=== PATIENT | male | born 1940 | race Caucasian/White ===

== ENCOUNTER 2018-03-20 16:35 | Emergency (ER) | payer MEDICARE ==
--- NOTE | 2018-03-20 16:59 | Emergency Department Report ---
ED Altered Mental Status HPI - General Chief Complaint: Altered Mental Status Stated Complaint: POSS CVA Time Seen by Provider: 03/20/18 16:55 Source: family, EMS Mode of arrival: Stretcher Limitations: Altered Mental Status - History of Present Illness Initial Comments: Per EMS report, patient passed out and fell at 15:50pm and became altered afterwards. Patient is unable to give a medical history or answer questions. He fell at home 2 days ago and sustained a laceration on the occipital part of his scalp. Patient has a history of hypertension and high Cholesterol. Attempt to get further history from the patient was unsuccessful. Patient had a Gastrointestinal bleed 2 weeks ago and he was treated at a [facility]. Complaint: altered mental status -: Sudden, hour(s) (1) Severity: Unable to Determine Consistency of Symptoms: unknown Context: unknown - Related Data Home Medications Medication Instructions Recorded Confirmed Last Taken Unobtainable 03/20/18 03/20/18 Unknown Allergies Allergy/AdvReac Type Severity Reaction Status Date / Time No Known Allergies Allergy Unverified 03/20/18 17:17 ED Review of Systems ROS: Stated complaint: POSS CVA Other details as noted in HPI Comment: Unobtainable due to pts medical conditions (Altered mental status.) ED Past Medical Hx - Medications Home Medications: Home Medications Medication Instructions Recorded Confirmed Last Taken Type Unobtainable 03/20/18 03/20/18 Unknown History ED Physical Exam - General Limitations: Altered Mental Status General appearance: alert, in no apparent distress - Head Head exam: Present: other (Occipital laceration which is old about 2-3 days and bleeding is controlled ) - Eye Eye exam: Present: normal appearance, PERRL - ENT ENT exam: Present: normal exam, mucous membranes moist - Neck Neck exam: Present: normal inspection - Respiratory Respiratory exam: Present: normal lung sounds bilaterally - Cardiovascular Cardiovascular Exam: Present: normal rhythm, bradycardia, normal heart sounds - GI/Abdominal GI/Abdominal exam: Present: soft, normal bowel sounds. Absent: distended, tenderness, guarding, rebound, rigid - Extremities Exam Extremities exam: Present: normal inspection, full ROM, normal capillary refill - Back Exam Back exam: Present: normal inspection - Neurological Exam Neurological exam: Present: alert, altered (Aphesia), other (GCS = 10. RUE weakness, Aphasia.) - Psychiatric Psychiatric exam: Present: flat affect - Skin Skin exam: Present: warm, dry, intact, normal color. Absent: rash - Assessment Assessment Interval: Baseline (Unable to evaluation because patient is not answering question and does not follow commands.) ED Course Vital Signs 03/20/18 03/20/18 03/20/18 17:00 17:01 17:10 Temperature 97.7 F Pulse Rate 52 L 53 L Respiratory 16 18 16 Rate Blood Pressure 161/68 161/68 O2 Sat by Pulse 100 100 100 Oximetry 03/20/18 03/20/18 03/20/18 17:15 17:30 17:45 Temperature Pulse Rate 52 L 55 L 61 Respiratory 16 22 25 H Rate Blood Pressure 161/68 184/74 161/68 O2 Sat by Pulse 100 100 100 Oximetry 03/20/18 03/20/18 03/20/18 18:00 18:17 18:30 Temperature Pulse Rate 53 L 60 58 L Respiratory 17 19 19 Rate Blood Pressure 165/65 165/65 177/71 O2 Sat by Pulse 100 100 100 Oximetry 03/20/18 03/20/18 03/20/18 18:45 19:00 19:15 Temperature Pulse Rate 67 58 L 57 L Respiratory 21 21 20 Rate Blood Pressure 165/65 173/75 173/75 O2 Sat by Pulse 100 100 100 Oximetry - Consultations Consultation #1: 03/20/18 17:15. I consulted the tele Neurologist oracle bpm consultant Dr Tracy Caballero. She recommend NO TPA. Patient has a history of recent head injury and G.I. bleed. She said the risk of TPA is more than the benefit at this time. She wants patient transfereed to [facility] for further evaluation and management. 03/20/18 18:07 Consultation #2: 03/20/18 18:54 I consulted the [facility] doctor oracle bpm consultant Dr Car. She agreed with transferring patient to [facility] for further evaluation and management. Consultation #3: 03/20/18 19:18 I consulted the Neuro Marine Engineer at [facility] Dr Rosario. He recommend transferring patient to [facility] for higher level of care and further management. - Lab Data Result diagrams: 03/20/18 16:45 03/20/18 16:45 Lab Results 03/20/18 03/20/18 03/20/18 Range/Units 16:45 16:45 16:45 WBC 5.5 (4.5-11.0) K/mm3 RBC 4.62 (3.65-5.03) M/mm3 Hgb 12.4 (11.8-15.2) gm/dl Hct 38.2 (35.5-45.6) % MCV 83 L (84-94) fl MCH 27 L (28-32) pg MCHC 33 (32-34) % RDW 20.9 H (13.2-15.2) % Plt Count 227 (140-440) K/mm3 Lymph % (Auto) 23.7 (13.4-35.0) % [place] % (Auto) 15.3 H (0.0-7.3) % Eos % (Auto) 4.7 H (0.0-4.3) % Baso % (Auto) 0.6 (0.0-1.8) % Lymph # 1.3 (1.2-5.4) K/mm3 [place] # 0.8 (0.0-0.8) K/mm3 Eos # 0.3 (0.0-0.4) K/mm3 Baso # 0.0 (0.0-0.1) K/mm3 Seg Neutrophils % 55.7 (40.0-70.0) % Seg Neutrophils # 3.0 (1.8-7.7) K/mm3 PT 14.0 (12.2-14.9) Sec. INR 1.03 (0.87-1.13) APTT 30.5 (24.2-36.6) Sec. Thrombin Time (15.1-19.6) Sec. Sodium 137 (137-145) mmol/L Potassium 4.2 (3.6-5.0) mmol/L Chloride 102.6 (98-107) mmol/L Carbon Dioxide 24 (22-30) mmol/L Anion Gap 15 mmol/L BUN 28 H (9-20) mg/dL Creatinine 1.2 (0.8-1.5) mg/dL Estimated GFR 59 ml/min BUN/Creatinine Ratio 23 % Glucose 106 H (75-100) mg/dL Calcium 8.8 (8.4-10.2) mg/dL Total Bilirubin (0.1-1.2) mg/dL Direct Bilirubin (0-0.2) mg/dL Indirect Bilirubin mg/dL AST (5-40) units/L ALT (7-56) units/L Alkaline Phosphatase (35-129) units/L Troponin T < 0.010 (0.00-0.029) ng/mL NT-Pro-B Natriuret Pep (0-900) pg/mL Total Protein (6.3-8.2) g/dL Albumin (3.9-5) g/dL Albumin/Globulin Ratio % Urine Color (Yellow) Urine Turbidity (Clear) Urine pH (5.0-7.0) Ur Specific [place] (1.003-1.030) Urine Protein (Negative) mg/dL Urine Glucose (UA) (Negative) mg/dL Urine Ketones (Negative) mg/dL Urine Blood (Negative) Urine Nitrite (Negative) Urine Bilirubin (Negative) Urine Urobilinogen (<2.0) mg/dL Ur Leukocyte Esterase (Negative) Urine WBC (Auto) (0.0-6.0) /HPF Urine RBC (Auto) (0.0-6.0) /HPF Urine Mucus /HPF 03/20/18 03/20/18 03/20/18 Range/Units 16:45 16:45 17:25 WBC (4.5-11.0) K/mm3 RBC (3.65-5.03) M/mm3 Hgb (11.8-15.2) gm/dl Hct (35.5-45.6) % MCV (84-94) fl MCH (28-32) pg MCHC (32-34) % RDW (13.2-15.2) % Plt Count (140-440) K/mm3 Lymph % (Auto) (13.4-35.0) % [place] % (Auto) (0.0-7.3) % Eos % (Auto) (0.0-4.3) % Baso % (Auto) (0.0-1.8) % Lymph # (1.2-5.4) K/mm3 [place] # (0.0-0.8) K/mm3 Eos # (0.0-0.4) K/mm3 Baso # (0.0-0.1) K/mm3 Seg Neutrophils % (40.0-70.0) % Seg Neutrophils # (1.8-7.7) K/mm3 PT (12.2-14.9) Sec. INR (0.87-1.13) APTT (24.2-36.6) Sec. Thrombin Time 17.1 (15.1-19.6) Sec. Sodium (137-145) mmol/L Potassium (3.6-5.0) mmol/L Chloride (98-107) mmol/L Carbon Dioxide (22-30) mmol/L Anion Gap mmol/L BUN (9-20) mg/dL Creatinine (0.8-1.5) mg/dL Estimated GFR ml/min BUN/Creatinine Ratio % Glucose (75-100) mg/dL Calcium (8.4-10.2) mg/dL Total Bilirubin 0.40 (0.1-1.2) mg/dL Direct Bilirubin < 0.2 (0-0.2) mg/dL Indirect Bilirubin 0.2 mg/dL AST 49 H (5-40) units/L ALT 27 (7-56) units/L Alkaline Phosphatase 102 (35-129) units/L Troponin T (0.00-0.029) ng/mL NT-Pro-B Natriuret Pep (0-900) pg/mL Total Protein 7.7 (6.3-8.2) g/dL Albumin 3.1 L (3.9-5) g/dL Albumin/Globulin Ratio 0.7 % Urine Color Yellow (Yellow) Urine Turbidity Clear (Clear) Urine pH 7.0 (5.0-7.0) Ur Specific [place] 1.011 (1.003-1.030) Urine Protein 100 mg/dl (Negative) mg/dL Urine Glucose (UA) Neg (Negative) mg/dL Urine Ketones Neg (Negative) mg/dL Urine Blood Neg (Negative) Urine Nitrite Neg (Negative) Urine Bilirubin Neg (Negative) Urine Urobilinogen < 2.0 (<2.0) mg/dL Ur Leukocyte Esterase Neg (Negative) Urine WBC (Auto) < 1.0 (0.0-6.0) /HPF Urine RBC (Auto) 2.0 (0.0-6.0) /HPF Urine Mucus Few /HPF 03/20/18 Range/Units 17:38 WBC (4.5-11.0) K/mm3 RBC (3.65-5.03) M/mm3 Hgb (11.8-15.2) gm/dl Hct (35.5-45.6) % MCV (84-94) fl MCH (28-32) pg MCHC (32-34) % RDW (13.2-15.2) % Plt Count (140-440) K/mm3 Lymph % (Auto) (13.4-35.0) % [place] % (Auto) (0.0-7.3) % Eos % (Auto) (0.0-4.3) % Baso % (Auto) (0.0-1.8) % Lymph # (1.2-5.4) K/mm3 [place] # (0.0-0.8) K/mm3 Eos # (0.0-0.4) K/mm3 Baso # (0.0-0.1) K/mm3 Seg Neutrophils % (40.0-70.0) % Seg Neutrophils # (1.8-7.7) K/mm3 PT (12.2-14.9) Sec. INR (0.87-1.13) APTT (24.2-36.6) Sec. Thrombin Time (15.1-19.6) Sec. Sodium (137-145) mmol/L Potassium (3.6-5.0) mmol/L Chloride (98-107) mmol/L Carbon Dioxide (22-30) mmol/L Anion Gap mmol/L BUN (9-20) mg/dL Creatinine (0.8-1.5) mg/dL Estimated GFR ml/min BUN/Creatinine Ratio % Glucose (75-100) mg/dL Calcium (8.4-10.2) mg/dL Total Bilirubin (0.1-1.2) mg/dL Direct Bilirubin (0-0.2) mg/dL Indirect Bilirubin mg/dL AST (5-40) units/L ALT (7-56) units/L Alkaline Phosphatase (35-129) units/L Troponin T < 0.010 (0.00-0.029) ng/mL NT-Pro-B Natriuret Pep 641.0 (0-900) pg/mL Total Protein (6.3-8.2) g/dL Albumin (3.9-5) g/dL Albumin/Globulin Ratio % Urine Color (Yellow) Urine Turbidity (Clear) Urine pH (5.0-7.0) Ur Specific [place] (1.003-1.030) Urine Protein (Negative) mg/dL Urine Glucose (UA) (Negative) mg/dL Urine Ketones (Negative) mg/dL Urine Blood (Negative) Urine Nitrite (Negative) Urine Bilirubin (Negative) Urine Urobilinogen (<2.0) mg/dL Ur Leukocyte Esterase (Negative) Urine WBC (Auto) (0.0-6.0) /HPF Urine RBC (Auto) (0.0-6.0) /HPF Urine Mucus /HPF - EKG Data -: EKG Interpreted by Nm EKG shows normal: sinus rhythm Rate: bradycardia (53) When compared to previous EKG there are: previous EKG unavailable Interpretation: nonspecific ST-T wave ricki, LVH 03/20/18 17:32 LAE, RBBB, No STEMI. - Radiology Data Radiology results: report reviewed, image reviewed - Medical Decision Making Cerebrovascular accident. Altered mental status. Hypertension. Patient will be transferred to [facility] for higher level of care. - Core Measures AMI Core Measures Followed: Yes Measure Exclusions: contraindicated (Recent head injury and G.I. bleed.) - NEXUS Criteria Focal neurological deficit present: Yes Altered level of consciousness: Yes NEXUS results: C-Spine cannot be cleared clinically by these results. Imaging is required. Critical Care Time: Yes Critical care time in (mins) excluding proc time.: 65 Critical care attestation.: If time is entered above; I have spent that time in minutes in the direct care of this critically ill patient, excluding procedure time. Critical Care Time: Multiple consultation and evaluation of labs/imaging studies. 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 CVA (cerebral vascular accident) Qualifiers: CVA mechanism: unspecified Qualified Code(s): I63.9 - Cerebral infarction, unspecified Altered mental status, unspecified Qualifiers: Altered mental status type: unspecified Qualified Code(s): R41.82 - Altered mental status, unspecified Head injury Qualifiers: Encounter type: initial encounter Qualified Code(s): S09.90XA - Unspecified injury of head, initial encounter Fall Qualifiers: Encounter type: initial encounter Qualified Code(s): W19.XXXA - Unspecified fall, initial encounter Hypertension Qualifiers: Hypertension type: unspecified Qualified Code(s): I10 - Essential (primary) hypertension Disposition: DC/TX-02 SHRT-TRM GEN HOSP IP Is pt being admited?: No Does the pt Need Aspirin: No Condition: Stable Instructions: Hypertension (ED) Referrals: PRIMARY CARE, [Primary Care Provider] - 3-5 Days Time of Disposition: 19:00
--- NOTE | 2018-03-20 17:02 | Cat Scan Report ---
FINAL REPORT EXAM: CT HEAD/BRAIN WO CON HISTORY: neuro deficits < 6hrs or sx present upon awakening patient had a recent fall. TECHNIQUE: 2.5 millimeter axial images from the skullbase to the vertex. Comparison: None FINDINGS: There is low-attenuation in the cortex of the right occipital lobe and posterior medial aspect of the right temporal lobe consistent with acute infarct in the right posterior cerebral artery distribution. There is a small focus of linear increased density in the anterior aspect of the infarct that most likely represents thrombus in the proximal ENGINEERING PSYCHOLOGIST or branch of the ENGINEERING PSYCHOLOGIST. There is a small focus of infarct in the patricia on the right of indeterminate age. There is a probable prominent perivascular space in the right putamen. There is no evidence of intracranial hemorrhage. Ventricular size is concordant with the degree of atrophy. There is moderate to marked atherosclerotic vascular calcification of the internal carotid arteries and vertebral arteries bilaterally at the skullbase. The visualized portions of the orbits, paranasal and mastoid sinuses are unremarkable. There is no evidence of fracture. IMPRESSION: 1. Evidence of acute infarct in the right posterior temporal and right occipital lobes in the right posterior cerebral artery distribution. Probable focus of thrombus in the proximal ENGINEERING PSYCHOLOGIST or branch of the ENGINEERING PSYCHOLOGIST on the right. 2. Infarct in the patricia on the right of indeterminate age. 3. No evidence of fracture. The finding of acute infarct right ENGINEERING PSYCHOLOGIST territory was discussed with Dr. Dee at 4:55 p.m. March 20, 2018.
[2018-03-20] MEDS ORDERED: ACTIVASE ONE (17:05)
[2018-03-20 17:07] LABS: Basophils % (Auto) 0.6 % (0.0-1.8); Eosinophils # (Auto) 0.3 K/mm3 (0.0-0.4); Eosinophils % (Auto) 4.7 % (0.0-4.3); Hematocrit 38.2 % (35.5-45.6); Hemoglobin 12.4 gm/dl (11.8-15.2); Lymphocytes # (Auto) 1.3 K/mm3 (1.2-5.4); Lymphocytes % (Auto) 23.7 % (13.4-35.0); Mean Corpuscular HGB Conc 33 % (32-34); Mean Corpuscular Hemoglobin 27 pg (28-32); Mean Corpuscular Volume 83 fl (84-94); Monocytes # (Auto) 0.8 K/mm3 (0.0-0.8); Monocytes % (Auto) 15.3 % (0.0-7.3); Platelet Count 227 K/mm3 (140-440); Red Blood Count 4.62 M/mm3 (3.65-5.03); Red Cell Distribution Width 20.9 % (13.2-15.2)
[2018-03-20 17:16] LABS: INR 1.03 (0.87-1.13)
[2018-03-20 17:17] LABS: Partial Thromboplastin Time 30.5 Sec. (24.2-36.6)
--- NOTE | 2018-03-20 17:26 | Cat Scan Report ---
FINAL REPORT EXAM: CT CERVICAL SPINE WO CON HISTORY: fall stroke TECHNIQUE: Axial helical imaging through the cervical spine with sagittal and coronal reformatted images obtained. Comparison: None FINDINGS: There is mild reversal of the normal lordotic curve of the cervical spine. The vertebral heights are maintained. There is loss of height of the C4-C5, C5-C6 and C6-C7 discs with associated degenerative endplate change. There is multiple level degenerative facet change. There is multiple level bony canal and foraminal stenosis secondary to spondylitic change. Visualization detail the contents of the cervical canal is limited by artifact. There is no evidence of fracture or or subluxation. The paraspinous soft tissues are notable for an ossific density in the midline posterior cervical soft tissues at the level of C5. This is of no clinical consequence. There are fibronodular changes in the lung apices bilaterally. IMPRESSION: 1. No evidence of fracture or subluxation . 2. Cervical spondylosis with multiple level canal and foraminal stenosis. Visualization detail of the contents of the cervical canal is limited with CT imaging.
[2018-03-20 17:30] LABS: BUN/Creatinine Ratio 23; Blood Urea Nitrogen 28 mg/dL (9-20); Calcium 8.8 mg/dL (8.4-10.2); Hemolysis Index 23
[2018-03-20 17:33] LABS: Alanine Aminotransferase 27 units/L (7-56); Albumin 3.1 g/dL (3.9-5)
[2018-03-20 17:34] LABS: Bilirubin,Direct < 0.2 mg/dL (0-0.2)
[2018-03-20] MEDS ORDERED: NACL 0.9% 1000 ML 500 ML IV ONE (17:56)
[2018-03-20 18:05] LABS: Bilirubin,Urine NEG (Negative); Blood,Urine NEG (Negative); Color,Urine Yellow (Yellow); Mucus,Urine FEW /HPF; Urobilinogen,Urine < 2.0 mg/dL (<2.0); WBC,Urine < 1.0 /HPF (0.0-6.0)
--- NOTE | 2018-03-20 19:17 | Cat Scan Report ---
FINAL REPORT EXAM: CT ANGIO NECK HISTORY: Stroke TECHNIQUE: Following IV administration of 100 cc of Omnipaque 350 axial helical imaging was performed through the neck with maximum intensity projection images obtained. Comparison: Head CT also performed today FINDINGS: There is lack of enhancement of the left internal carotid artery from near the origin to the skullbase consistent with occlusion. There is a tapering of the proximal left internal carotid artery to the point of occlusion and the appearance of a linear filling defect which may represent an intimal flap. This is suggestive of internal carotid artery dissection as the etiology of the occlusion. There is otherwise normal enhancement of the major cervical arteries without other evidence of occlusion, stenosis or aneurysm. The left vertebral artery is dominant. There is an approximately 9 millimeter nodular density with stellate margins in the right upper lobe. There is cervical spondylosis with multiple level canal and foraminal stenosis. IMPRESSION: 1. Occlusion left internal carotid artery from near the origin to the skullbase consistent with occlusion. The appearance is suggestive of a left internal carotid artery dissection as the etiology of this occlusion. 2. Approximately 9 millimeter nodular density with stellate margins right upper lobe. If this has not been previously evaluated, CT chest would be helpful for further evaluation.
--- NOTE | 2018-03-20 19:27 | Cat Scan Report ---
FINAL REPORT EXAM: CT ANGIO HEAD HISTORY: Stroke TECHNIQUE: Following IV administration of 100 cc of Omnipaque 350 axial helical imaging was performed through the brain with maximum intensity projection images and sagittal and coronal reformatted images obtained. Comparison: CT angiogram neck also performed today FINDINGS: There is lack of normal enhancement of the left internal carotid artery in the carotid canal, cavernous and supraclinoid segments consistent with occlusion. There is filling of the left middle cerebral artery by collateral flow, likely from branches of the left external carotid artery. The left A1 is hypoplastic and the left posterior communicating artery appears to be absent. There is the appearance of segments of stenosis, possibly high-grade of the M2 segment of the left middle cerebral artery. There is no evidence of occlusion, hemodynamically significant stenosis or aneurysm of the right anterior circulation. There appears to be supply to the anterior cerebral arteries bilaterally from the right internal carotid artery via the anterior communicating artery. There is no evidence of occlusion, hemodynamically significant stenosis or aneurysm of the P1 or P2 segments of the right posterior cerebral artery. There appears to be a short-segment stenosis, degree indeterminate, of the proximal P2 segment of the left posterior cerebral artery. There is left meningeal enhancement in the right occipital lobe and posterior aspect of the right temporal lobe corresponding to the recently demonstrated acute infarct this region. IMPRESSION: 1. Occlusion left internal carotid artery from the skullbase to the level of the carotid terminus. 2. Filling of the left middle cerebral artery from collateral flow, likely from branches of the left external carotid artery since the left A1 is hypoplastic and the left posterior communicating artery appears to be absent. 3. Short-segment stenosis, degree indeterminate, proximal P2 segment left posterior cerebral artery. 4. Repeat demonstration of evidence of acute infarct right posterior medial temporal and occipital lobes in the right posterior cerebral artery distribution. There is no definite evidence of hemodynamically significant stenosis of the proximal right posterior cerebral artery.
[2018-03-20 20:06] VITALS: BP 169/68
--- NOTE | 2018-03-20 20:06 | XRay Report ---
FINAL REPORT EXAM: XR CHEST 1V AP HISTORY: AMS TECHNIQUE: Frontal portable view of the chest Comparison: CT angiogram neck also performed today FINDINGS: There is prominence of the interstitial markings in both lungs. The there are fibronodular changes in the lung apices bilaterally. The nodular density demonstrated in the right upper lung field on the CT angiogram neck is not as clearly demonstrated with plain film imaging. There is no evidence of pneumothorax or pleural fluid collection. The cardiac silhouette is enlarged. The thoracic aorta and bony structures are unremarkable. IMPRESSION: 1. Prominence of the interstitial markings in both lungs, acute versus chronic. 2. The nodular density demonstrated in the right upper lung field on the CT angiogram neck is not as clearly demonstrated with plain film imaging. 3. Enlarged cardiac silhouette.
== END 2018-03-20 19:55 | disposition short-term general hospital (02) ==
LOC: ED 16:35
DX: I65.22 Occlusion and stenosis of left carotid artery (principal); I63.9 Cerebral infarction, unspecified; S09.90XA Unspecified injury of head, initial encounter; I10 Essential (primary) hypertension; E78.00 Pure hypercholesterolemia, unspecified; W18.30XA Fall on same level, unspecified, initial encounter; Y93.89 Activity, other specified; Y92.89 Other specified places as the place of occurrence of the external cause; Y99.8 Other external cause status
CPT/HCPCS: 36415; 70450; 70496; 70498; 71045; 72125; 80048; 80074; 81001; 82962; 83880; 84484; 85025; 85610; 85670; 85730; 93005; 93010; 99291; J7030; Q9967; J2997